=== PATIENT | female | born 2000 ===

== ENCOUNTER → 2023-04-15 23:59 | Outpatient (BNV) | payer MEDICAID, SELFPAY ==
--- NOTE | 2023-04-16 10:54 | MHC.OFFVIS ---
Intake Intake Visit Reasons: follow up Allergies Seasonal Allergies Allergy (Mild, Verified 04/16/23 11:11) Nasal Discharge HPI HPI Comments History of Present Illness Details student presents for orientation and complaint of headache - beginning of migraine. she has moved out here from [facility] and has a pcp and ob/gyne in [place] while she was moved to [facility] for homelessness after her mother kicked her out. mom's boyfriend and she didn;'t get a long and mom chose him . she was all i had left and she chose him. hher phq 9 is 15 which she feels is totally situational. she had support back in [place] and out here she is alone. [place] w/ his mother who wouldn't take her in. she has no energy and is irritable and feels bad that this could affect her son. she wonders if he is on the spectrum as some people find him difficult but my boy is a loveable little boy even though he has some trouble understanding things. he was identified as a problem in a previous day care but she feels he is doing fine in our daycare. s he really wants to move back to [place] and go to [employer] that has a day care in the building. she needs only 10 credits to graduate and she feels very trapped here.. childhood - was never very close to her mom, jeffy dominguez. her great grandparents raised her and gave her a good home. grandfather in 2013 ( she was very close to him) and grandmother just in 2020 a few months before she found out she was . b/f 'is good to me mom is not. she is and has bad insomnia w/ . no cig, no etoh,no weed while preg - before occasional weed recreationally - nothing now [facility] Medical History (Updated 04/16/23 @ 11:22 by ANA MARIA Milner) Nausea/vomiting in Migraine headache with aura History of asthma Anxiety and depression Constipation during Family History (Updated 04/16/23 @ 11:06 by ANA MARIA Milner) Mother Fibromyalgia Anemia Father Heart attack Son No problems noted. Questionnaire PHQ-9 Over the last 2 weeks, how often have you been bothered by any of the following problems? 1. Little interest or pleasure in doing things: more than half the days 2. Feeling down, depressed, or hopeless: more than half the days 3. Trouble falling or staying asleep, or sleeping too much: nearly every day 4. Feeling tired or having little energy: nearly every day 5. Poor appetite or overeating: not at all 6. Feeling bad about yourself - or that you are a failure or have let yourself or your family down: more than half the days 7. Trouble concentrating on things, such as reading the newspaper or watching television: more than half the days 8. Moving or speaking so slowly that other people could have noticed. Or the opposite - being so fidgety or restless that you have been moving around a lot more than usual: several days 9. Thoughts that you would be better off or of hurting yourself in some way: not at all Total score: 15 Depression Screening Interpretation: Positive (relocated to [facility] and feels her mood is situational - we are monitoring/supporting) Depression Screening Done: Yes 20366 - PHQ-9 Billing: Yes Source: Developed by Drs. Zev Olguin, Sushma Sanchez, Celestino Rae and colleagues, with an educational oliver from [email or web address]. CRAFFT Screening Tool PART A: In the PAST 12 MONTHS, did you: Drink any alcohol (more than few sips)? (Do not count sips of alcohol taken during family or anglican events.): No Smoke any marijuana or hashish?: No Use anything else to get high? (includes illegal drugs, over the counter/prescription drugs, or things that you sniff/rico?): No PART B: If answered YES to ANY above: details: currently no substance use secondary to - preivuosly only using cannabis for recreational - occasional CRAFFT Assessment Charge Crafft: CRAFFT 32591 Review of Systems Const Details: Counseling visit: All systems reviewed & are unremarkable except as noted in HPI and below Reports as per HPI Resp Reports as per HPI GI Reports as per HPI Musc Reports as per HPI Neuro Reports as per HPI Psych Reports as per HPI Physical Exam Const General: cooperative, healthy appearing and no acute distress Nutritional Appearance: well nourished Orientation/consciousness: oriented to person Limitations: no limitations HEENT Other: wnl Eyes Other: wnl Chest Other: easy breathing Resp Effort & Inspection: able to speak in complete sentences Skin Other: normal in appearance Neuro General: oriented to person Psych Other: difficult history = but she is warm and open and occasionally smiles Mental Status: mental status grossly normal Speech and movement: Clear speech present Attitude: cooperative Thought process: Normal thought process present Assessment & Plan Assessment & Plan (1) Nausea/vomiting in : Code(s): O21.9 - Vomiting of , unspecified (2) Migraine headache with aura: Comment: loses vision? Code(s): G43.109 - Migraine with aura, not intractable, without status migrainosus (3) Anxiety and depression: Code(s): F41.9 - Anxiety disorder, unspecified; F32.A - Depression, unspecified (4) Constipation during : Code(s): O99.619 - Diseases of the digestive system complicating , unspecified trimester; K59.00 - Constipation, unspecified (5) Counseling and coordination of care: Code(s): Z71.89 - Other specified counseling Plan extensive counseling and coord care w/ onsite information support project manager. understanding that client is feeling very lonely and isolated we will be offering support and help to relocate back home if it is best for her. meanwhile - support and encourage w/ school - she's bright and engaged. re:migraine - discussed with her as likely migraine vision issue but needs work up by her pcp. she came w a headache that one extra strength tylenol and cool pack helped and she chose to return to class. Quality Reporting (2019) Depression/Bipolar (159/160/161/177) PHQ-9: Total score: 15 Coding Level of Care Code New Pt Level 5 (46783) Diagnoses Nausea/vomiting in O21.9 Migraine headache with aura G43.109 Anxiety and depression F41.9; F32.A Constipation during O99.619; K59.00 Counseling and coordination of care Z71.89 Additional Codes CRAFFT Assessment Charge - Sandy: SANDY [id number] ([id number]) Time Spent (min) 60 Comment extensive counseling and coord care
== END ==
PROVIDERS: PCP Nurse Practitioner Family; Visit Provider Nurse Practitioner Family
DX: G43.109 Migraine with aura, not intractable, without status migrainosus (principal); O21.9 Vomiting of pregnancy, unspecified; F41.9 Anxiety disorder, unspecified; F32.A Depression, unspecified; O99.619 Diseases of the digestive system complicating pregnancy, unspecified trimester; K59.00 Constipation, unspecified; Z13.30 Encounter for screening examination for mental health and behavioral disorders, unspecified
CPT/HCPCS: 96160; 99205

== ENCOUNTER → 2023-04-22 10:38 | Outpatient (BNV) | payer MEDICAID, SELFPAY ==
--- NOTE | 2023-04-22 10:38 | A.OFFVIS_ITS ---
Intake Intake Visit Reasons: Amb Documentation Allergies Seasonal Allergies Allergy (Mild, Verified 04/16/23 11:11) Nasal Discharge HPI HPI Comments History of Present Illness Details student is in [employer] office w/ ice kiko on head. she has a migraine and requests help. she doesnt; want to be excused today as she wants to go to class and then to yoga. she is . same stressors continue in her world - she was moved out here in long term system away from her family and supports. she wants to return to [place] - this is where her pcp is. she has multiple appts out there. suggested that she see her pcp about recurrent migraines and also the intermittent loss of vision - to confirm that it is indeed a visual migraine issue. right now [facility] of this vision issue but not pcp. she agress. she is resting in the dark until headache goes away PENDING SALE TO [facility] Medical History Nausea/vomiting in Migraine headache with aura History of asthma Anxiety and depression Constipation during Family History Mother Fibromyalgia Anemia Father Heart attack Son No problems noted. Review of Systems Const Details: Counseling visit: All systems reviewed & are unremarkable except as noted in HPI and below Reports as per HPI Resp Reports as per HPI GI Reports as per HPI Musc Reports as per HPI Neuro Reports as per HPI Psych Reports as per HPI Physical Exam Const General: cooperative, healthy appearing and no acute distress Nutritional Appearance: well nourished Orientation/consciousness: oriented to person Limitations: no limitations HEENT Other: wnl Ears: hearing grossly normal bilaterally Face and sinus: Yes normal facial exam and Yes sinuses nontender Eyes Other: wnl General: appearance normal, both eyes and all related structures Alignment and Position: alignment normal Pupils: Equal, round and reactive pupils present Chest Other: easy breathing Resp Effort & Inspection: able to speak in complete sentences Skin Other: normal in appearance Neuro Other: grossly normal General: oriented to person Cranial nerves: Yes Equal, round and reactive pupils present Cognition (Neuro): normal cognition Gait exam (Neuro): Normal gait present Psych Other: calm Appearance: grossly normal Mental Status: mental status grossly normal Speech and movement: Clear speech present Attitude: cooperative Thought process: Normal thought process present Assessment & Plan Assessment & Plan (1) Counseling and coordination of care: Code(s): Z71.89 - Other specified counseling (2) Migraine headache with aura: Comment: loses vision? Code(s): G43.109 - Migraine with aura, not intractable, without status migrainosus Plan coordinating care w/ on site counselor . student will reach out to her pcp but will stay in program today for support Coding Level of Care Code Est Pt Level 2 (30161) Diagnoses Counseling and coordination of care Z71.89 Migraine headache with aura G43.109 Time Spent (min) 10 Comment coord care and counseling
== END ==
PROVIDERS: PCP Nurse Practitioner Family; Visit Provider Nurse Practitioner Family
DX: G43.109 Migraine with aura, not intractable, without status migrainosus (principal); Z71.89 Other specified counseling
CPT/HCPCS: 99212

== ENCOUNTER → 2023-05-01 10:30 | Outpatient (BNV) | payer MEDICAID, SELFPAY ==
--- NOTE | 2023-05-01 10:30 | A.OFFVIS_ITS ---
Intake Intake Visit Reasons: Amb Documentation Allergies Seasonal Allergies Allergy (Mild, Verified 04/16/23 11:11) Nasal Discharge HPI HPI Comments History of Present Illness Details student is signed up by flores winston because she fell when getting off the bus - student is not really feeling a big issue - her slippers got stuck in the mud. she was carrying her baby and fell so she wouldnt hurt the child. she states she is feeling ok - her knees hurt a bit - refuses to be examined is in lunchroom ( i saw her later and again offered to see her - offe red tylenol or a cold pack and she declined) she is walking w/o issue. she has no complaints about abdominial issues - cramping etc PFSH Medical History Nausea/vomiting in Migraine headache with aura History of asthma Anxiety and depression Constipation during Family History Mother Fibromyalgia Anemia Father Heart attack Son No problems noted. Review of Systems Const Details: Counseling visit: All systems reviewed & are unremarkable except as noted in HPI and below Reports as per HPI Resp Reports as per HPI GI Reports as per HPI Musc Reports as per HPI Neuro Reports as per HPI Psych Reports as per HPI Physical Exam Const General: cooperative, healthy appearing and no acute distress Nutritional Appearance: well nourished Orientation/consciousness: oriented to person Limitations: no limitations HEENT Other: wnl Eyes Other: wnl Chest Other: easy breathing Resp Effort & Inspection: able to speak in complete sentences Skin Other: normal in appearance Neuro General: oriented to person Extrem Other: normal gait - no limp, pants are not torn... Psych Other: normal for her - she is a bit flat but smiling as appropriate Appearance: well kempt Mental Status: mental status grossly normal Speech and movement: Clear speech present Affect: normal affect Thought process: Normal thought process present Assessment & Plan Assessment & Plan (1) Fall from slipping on mud: Code(s): W01.0XXA - Fall on same level from slipping, tripping and stumbling without subsequent striking against object, initial encounter (2) , incidental: Code(s): Z33.1 - state, incidental (3) Counseling and coordination of care: Code(s): Z71.89 - Other specified counseling Plan student in the [facility] all day - working w flores winston onsite counselor separately - she has currently refused interventions, including ice kiko, examination, and tylenol. she is walking fine and her pants are not torn. no complaints of related issues. flat affect as per her normal - but smiling appropriately and interactive while not really engaged. informed her that she can come at any time for further exam/assistance Coding Level of Care Code Est Pt Level 2 (48582) Diagnoses Fall from slipping on mud W01.0XXA , incidental Z33.1 Counseling and coordination of care Z71.89 Time Spent (min) 15 Comment support and continued monitoring - coord care/counseling w/ onsite support team
== END ==
PROVIDERS: PCP Nurse Practitioner Family; Visit Provider Nurse Practitioner Family
DX: Z71.89 Other specified counseling (principal); W01.0XXA Fall on same level from slipping, tripping and stumbling without subsequent striking against object, initial encounter; Z33.1 Pregnant state, incidental
CPT/HCPCS: 99212

== ENCOUNTER → 2023-05-07 09:52 | Outpatient (BNV) | payer MEDICAID, SELFPAY ==
--- NOTE | 2023-05-07 09:52 | MHC.OFFVIS ---
Intake Intake Visit Reasons: Amb Documentation Allergies Seasonal Allergies Allergy (Mild, Verified 04/16/23 11:11) Nasal Discharge HPI HPI Comments History of Present Illness Details student holding bag of vomit. states that she is really nauseous w/ . she had medicaitons but they are in [place] where she was moved from to be in [facility] correction. she states she was on ondansatron but was switched to something else that was not covered on [facility] [employer] - she now states that she wants to be on zofran again. because her care is being provided out there and not attached to our system, i cant determine why she was taken off and what her other meds are, so i am suggesting that she reach out to them to get rx transferred to the [facility] on [address] - she is already calling her clinic to get that done. she wants to go home because she has urinated on herself while vomiting. excused to get this all set and she is to call flores winston if she is not having any luck with contacting [facility] and getting rx transferred. [facility] Medical History (Updated 05/07/23 @ 10:01 by ANA MARIA Milner) Sheltered homelessness Nausea/vomiting in Migraine headache with aura History of asthma Anxiety and depression Constipation during Family History Mother Fibromyalgia Anemia Father Heart attack Son No problems noted. Review of Systems Const Details: Counseling visit: All systems reviewed & are unremarkable except as noted in HPI and below Reports as per HPI Resp Reports as per HPI GI Reports as per HPI Musc Reports as per HPI Neuro Reports as per HPI Psych Reports as per HPI Physical Exam Const General: cooperative, healthy appearing and no acute distress Nutritional Appearance: well nourished Orientation/consciousness: oriented to person Limitations: no limitations HEENT Other: wnl Eyes Other: wnl Chest Other: easy breathing Resp Effort & Inspection: able to speak in complete sentences Skin Other: normal in appearance Neuro General: oriented to person Psych Other: see HPI Mental Status: mental status grossly normal Speech and movement: Clear speech present Attitude: cooperative Thought process: Normal thought process present Assessment & Plan Assessment & Plan (1) Nausea/vomiting in : Code(s): O21.9 - Vomiting of , unspecified (2) Counseling and coordination of care: Code(s): Z71.89 - Other specified counseling (3) Sheltered homelessness: Code(s): Z59.01 - Sheltered homelessness Plan as discussed in hpi -the plan is she will try and reach [facility] who is the hub of her care and she will get them to transfer rx to [facility] on [address]. she was excused for the day to geth this done and to change her clothes. flores knottchapin will check to make sure that the rx change has happened and that student has rx for school tomorrow if needed. Coding Level of Care Code Est Pt Level 3 (88359) Diagnoses Nausea/vomiting in O21.9 Counseling and coordination of care Z71.89 Sheltered homelessness Z59.01 Time Spent (min) 25 Comment counseling coord care w/ correction and onsite counseling staff
== END ==
PROVIDERS: PCP Nurse Practitioner Family; Visit Provider Nurse Practitioner Family
DX: O21.9 Vomiting of pregnancy, unspecified (principal); Z71.89 Other specified counseling; Z59.01 Sheltered homelessness
CPT/HCPCS: 99213